=== PATIENT | female | born 1965 | race Caucasian/White ===

== ENCOUNTER 2025-04-22 14:17 | Outpatient (AMB) | payer OTHER, SELFPAY ==
--- NOTE | 2025-04-22 14:45 | MHC.OFFVIS ---
Intake Visit Reasons: Follow up Accompanied by: Daughter Allergies amitriptyline Allergy (Unknown, Verified 04/22/25 14:49) Unknown aspirin Allergy (Unknown, Verified 04/22/25 14:49) Unknown ibuprofen Allergy (Unknown, Verified 04/22/25 14:49) Unknown Medication List - Last Reconciled 04/22/25 by Manisha Stuart CNP sertraline 100 mg PO DAILY sumatriptan succinate 50 mg PO topiramate orally 1/2 tab in the morning and 1 tab at bedtime; trazodone 50 mg PO BEDTIME PRN HPI Comments Details: 59-year-old woman with anxiety, depression, IBS, and migraine.? She was doing okay. Migraines were better with increased dose of topiramate. They were not happening as often and she was not waking up with headaches anymore. Sumatriptan as needed helped, but occasionally she had to repeat dose. Sleep was okay. Mood was okay. [facility] Medical History (Updated 04/22/25 @ 14:47 by Manisha Stuart CNP) IBS (irritable bowel syndrome) Migraine Insomnia Depression with anxiety Chronic migraine without aura Review of Systems Const Denies chills, Denies daytime sleepiness, Reports difficulty sleeping, Denies fatigue, Denies fever(s), Denies frequent falls, Reports headache(s), Denies increased appetite, Denies poor appetite, Denies snoring, Denies weakness, Denies weight gain and Denies weight loss Eyes Denies loss of vision ENT Denies vertigo, Denies dizziness and Reports headache(s) Card Denies chest pain at rest, Denies chest pain with activity, Denies syncope, Denies leg edema and Denies palpitations Resp Denies snoring GI Denies constipation, Denies heartburn, Denies diarrhea and Denies nausea Denies urinary frequency, Denies urinary incontinence and Denies urinary urgency Musc Denies abnormal gait, Denies numbness and Denies tingling Skin/Breast Denies dry skin and Denies rash Neuro Denies abnormal gait, Denies vertigo, Denies dizziness, Denies syncope, Denies frequent falls, Reports headache(s), Denies lack of coordination, Denies loss of vision, Denies memory loss, Denies numbness, Denies restless legs, Denies seizure-like activity, Denies tingling, Denies paresthesias, Denies tremor(s) and Denies weakness Psych Denies anxiety, Reports depression, Denies auditory hallucinations, Denies memory loss, Denies visual hallucinations and Denies suicidal ideation Endo Denies fatigue and Denies palpitations Physical Exam Const Other: General Appearance:? normal, in no acute distress. Skin:? no rashes, no significant birthmarks. Heart:? S1, S2 normal, no murmurs. Lungs:? clear anteriorly and posteriorly. Extremities:? no edema. Psych:? alert, oriented, cognitive function intact, cooperative with exam. Neuro Other: Mental Status:?Normal attention, orientation, memory and affect.? Cranial Nerves:?Pupils are equal, round and reactive to light. External occular muscles are intact. Visual hancock are full. Face is symmetrical. Facial sensations are normal. Tongue is midline. Palate elevates symmetrically. Shoulder shrugging is normal. Hearing to bedside conversation is normal. Sensory Exam:?....? Coordination:?No ataxia,?no titubation.? Gait Exam: Within normal limits. Cerebellar Signs:?Tbpscn-be-csto is okay. Extrapyramidal System:?No tremor, rigidity with normal facial expressions.? Pronator Drift:?Not present.? Involuntary Movements:?No tremors seen.? Speech:?Normal.? Assessment & Plan Assessment & Plan (1) Migraine without aura: Code(s): G43.009 - Migraine without aura, not intractable, without status migrainosus Category: Medical Qualifiers: Status migrainosus presence: without status migrainosus Intractability: not intractable Qualified Code(s): G43.009 - Migraine without aura, not intractable, without status migrainosus Plan: Continue sertraline 100mg 1 tablet daily. Continue topiramate 100mg 1/2 tablet in the morning and 1 tablet at bedtime. Continue sumatriptan 50mg 1 tablet as needed for migraines. (2) Insomnia: Code(s): G47.00 - Insomnia, unspecified Category: Medical Qualifiers: Insomnia type: unspecified Qualified Code(s): G47.00 - Insomnia, unspecified Plan: Continue trazodone 50mg 1 tablet at bedtime as needed for sleep. Plan Meds tried: Propranalol, Topiramate, Depakote, metoclopromide, amitryptiline, metoprolol, cafergot, fiorecet. Medications: New sumatriptan succinate take 1 tab at onset of headache; if no relief may repeat 1 tab after at least 2 hrs; PO 10 tabs 5RF 30 days Changed From topiramate orally 1/2 tab in the morning and 1 tab at bedtime; To topiramate 100 mg orally 1/2 tab in the morning and 1 tab at bedtime; 135 tabs 1RF 90 days Discontinued sumatriptan succinate Discontinued Reason: Order 50 mg PO Coding Level of Care Code Est Pt Level 4 (94538) Diagnoses Migraine without aura and without status migrainosus, not intractable G43.009 Status migrainosus presence: without status migrainosus Intractability: not intractable Insomnia, unspecified type G47.00 Insomnia type: unspecified
--- OUTSIDE RECORDS SUMMARY | 2025-04-22 15:39 | XMS_ITS ---
Author Name [facility] Organization Unknown Care Team Organization Name Specialty Phone Email Start Date End Da te [facility] Kamryn Potts Primary [facility] 05/22/2023 024
--- OUTSIDE RECORDS SUMMARY | 2025-04-22 15:39 | XMS_ITS | Clinical Summary ---
Author Organization [address] [place] [address] Address [address] [place] [address] Phone Care Team Providers Care Material Damage Appraiser Name Role Phone Lynn Medrano MD Primary Care Provider [phone] Allergies Active Allergy Reactions Criticality Noted Date Comments Amitriptyline 07/07/2019 Tightness of throat, difficulty breathing Aspirin GI intolerance 04/06/2019 Ibuprofen Hives 04/06/2019 Medications NON FORMULARY Take by mouth. SUMAtriptan-On dansetron 50 & 4 MG Tablet Therapy Pack- Take by mouth. Active sertraline (ZOLOFT) 100 mg tablet Take 1 tablet (100 mg total) by mouth 1 (one) time each day. 4 Active dicyclomine (BENTYL) 10 mg capsule Take 1 Capsule by mouth 4 times daily as needed (for abdominal cramps). 4 Active polyethylene glycol (PEG) 17 gram/dose oral powder One capful (17g) once or twice daily as needed for constipation. 2 Active topiramate 100 mg capsule,extende d release 24hr Take 1 Tab by mouth at bedtime. From Neurologist- 0 Active traZODone (DESYREL) 50 mg tablet Take 50 mg by mouth at bedtime. Take half as needed Active atorvastatin (LIPITOR) 40 mg tablet TAKE 1 TABLET BY MOUTH DAILY 30 each 1 5 Active Active Problems Problem Noted Date Diagnosed Date Chronic Helicobacter pylori gastritis 10/01/2019 Internal hemorrhoids 10/01/2019 IBS (irritable bowel syndrome) 06/08/2019 Overview (07/02/2024): Both constipation and diarrhea Anxiety 04/03/2019 Depression 04/03/2019 GERD (gastroesophageal reflux disease) 9 Hyperlipidemia 04/03/2019 Migraine 04/03/2019 Overview (07/02/2024): See neurology Encounters Date Type Department Care Team Description 03/24/2025 10:00 AM EDT Ancillary Procedure [facility] - [address] [place] [address] Varicose veins of both lower extremities with pain 01/22/2025 Telephone Vascular Surgery - [place] [address] [place] [address] Elizabet Marquis MD from Last 3 Months Immunizations Name Administration Dates Next Due Influenza Quadravalent, MDCK , 0.5ml, preservative free (Flucelvax) 6mo and older 06/08/2019 MMR, measles mumps and rubel la Live (Priorix; M-M-R II) 12mo and older 12/20/2018 Moderna SARS-CoV-2 COVID-19, mRNA, LNP-S, preservative free 11/11/2020,10/14/2020 Tdap Tetanus diptheria acell ular pertussis (Boostrix; Adacel) 7yo and older 01/22/2018 Surgical History Surgery Date Site/Laterality Comments SECTION PROCEDURE: HISTORICAL HERNIA REPAIR PROCEDURE: HISTORICAL HERNIA REPAIR/UMB Medical History Medical History Date Comments Hyperlipidemia 04/03/2019 DX:Hyperlipidemi a Depression 04/03/2019 DX:Depression Anxiety 04/03/2019 DX:Anxiety GERD (gastroesophageal reflux disease) 04/03/2019 DX:GERD (gastroesophageal reflux disease) Migraine 04/03/2019 DX:Migraine Family History Medical History Relation Name Comments No Known Problems Brother COPD Father Leukemia Mother Breast cancer Other m cousin Relation Name Status Comments Brother Father Mother Other m cousin Alive Social History Tobacco Use Types Packs/Day Years Used Date Smoking Tobacco: Never Smokeless Tobacco: Never Alcohol Use Standard Drinks/Week Comments Not Currently 0 (1 standard drink = 0.6 oz pur e alcohol) Comments Unknown Sex and Gender Information Value Date Recorded Sex Assigned at Not on file Legal Sex Female 4:16 AM EST Gender Identity Not on file Sexual Orientation Not on file Obstetrics History Last Filed Vital Signs Vital Sign Reading Time Taken Comments Blood Pressure 110/70 08/05/2024 2:31 PM EST Pulse 72 08/05/2024 2:31 PM EST Temperature - - Respiratory Rate 16 08/05/2024 2:31 PM EST Oxygen Saturation - - Inhaled Oxygen Concentration - - Weight 75.3 kg (166 lb) 08/05/2024 2:31 PM EST Height 152.4 cm (5') 08/05/2024 2:31 PM EST Body Mass Index 32.42 08/05/2024 2:31 PM EST Plan of Treatment Upcoming Encounters Date Type Department Care Team (Late st Contact Info) Description 06/05/2025 12:50 PM EDT Appointment Radiology Department [address] [phone] 06/14/2025 3:30 PM EDT Office Visit Vascular Surgery - [place] [address] [place] [address] Lisa Harry PA [address] [place] [phone] 10/06/2025 12:00 PM EST Office Visit Internal Medicine - [address] [phone] Lynn Medrano MD [address] [place] [address] Health Maintenance Due Date Last Done Comments Pneumococcal Vaccine: 50+ Years (1 of 1 - PCV) 2013 Zoster Vaccines (1 of 2) 2013 HIV Screening 07/28/2022 Social Influencers of Health Screening 07/28/2022 Depression Screening 08/19/2024 COVID-19 Vaccine ( season) 2025 07/19/2022, 07/06/2021, 11/11/2020, Additional history exists Influenza Vaccine (#1) 2025 2, 05/23/2020, 06/08/2019 Breast Cancer Screening 05/30/2026 05/30/20 24, 05/30/2024, 05/07/2023, Additional history exists DTaP,Tdap,and Td Vaccines (2 - Td or Tdap) 01/23/2028 01/22/2018 Cervical Cancer Screening: HPV 12/02/2028 12/03/2023 Cholesterol Screening (Lipid Panel) 06/10/2029 06/10/2024, 06/10/2024 Colorectal Cancer Screening: Colonoscopy 09/17/2029 09/17/2019 RSV Immunization Adult Patients (1 - 1-dose 75+ series) 2038 MMR Vaccines Aged Out 12/20/2018 No longer eligi ble based on patient's age to complete this topic Hepatitis C Screening Completed 04/20/2022 HIB Vaccines Aged Out No longer eligi ble based on patient's age to complete this topic HPV Vaccines Aged Out No longer eligi ble based on patient's age to complete this topic Hepatitis A Vaccines Aged Out No long er eligible based on patient's age to complete this topic Hepatitis B Vaccines Aged Out No long er eligible based on patient's age to complete this topic IPV Vaccines Aged Out No longer eligi ble based on patient's age to complete this topic Meningococcal ACWY Vaccine Aged Out N o longer eligible based on patient's age to complete this topic Meningococcal B Vaccine Aged Out No l onger eligible based on patient's age to complete this topic RSV Immunization Patients Under 20 months Aged Out No longer eligible based on patient's age to complete this topic Varicella Vaccines Aged Out No longer eligible based on patient's age to complete this topic Procedures Procedure Name Priority Date/Time Associated Diagnosis Comments VAS US DUPLEX LOWER EXT VENOUS INSUFFICIENCY BILATERAL Routine 03/24/2025 10:33 AM EDT Varicose veins of both lower extremities with pain LIPID PANEL Routine 06/10/2024 SCREENING MAMMOGRAPHY BI 2-VIEW BREAST INC CAD Routine 05/30/2024 1:20 PM EDT Encounter for screening mammogram for malignant neoplasm of breast HM HPV Routine 12/03/2023 HEPATITIS C SCREENING Routine 04/20/2022 COLONOSCOPY Routine 09/17/2019 from Last 3 Months or Most Recently Relevant to Health Maintenance Results * Vascular US duplex lower extremity venous insufficiency bilateral (03/24/2025 10:33 AM EDT) Left GSK lottie 0.32 cm CV VAS LAB Left GSDC lottie 0.12 cm CV VAS LAB Left GSMT lottie 0.36 cm CV VAS LAB Left GSPC lottie 0.21 cm CV VAS LAB Left GSPT lottie 0.36 cm CV VAS LAB Left SFJ Diameter 0.53 cm CV VAS LAB Left SSMC lottie 0.12 cm CV VAS LAB Left SSPC lottie 0.14 cm CV VAS LAB Right GSK lottie 0.20 cm CV VAS LAB Right GSDC lottie 0.21 cm CV VAS LAB Right GSMT lottie 0.37 cm CV VAS LAB Right GSPC lottie 0.21 cm CV VAS LAB Right GSPT lottie 0.40 cm CV VAS LAB Right SFJ Diameter 0.52 cm CV VAS LAB Right SSMC lottie 0.17 cm CV VAS LAB Right SSPC lottie 0.16 cm CV VAS LAB Left GSMT reflux 2,120 ms CV VAS LAB Left GSPC reflux 4,522 ms CV VAS LAB Anatomical Region Laterality Modality Vascular, Abdomen Ultrasound Narrative 03/24/2025 2:29 PM EDT RIGHT. 1. No evidence of deep vein thrombosis. 2. The saphenofemoral junction, common femoral, femoral, and popliteal veins are competent. 3. No superficial venous thrombosis. 4. No venous reflux noted in the small saphenous vein. 5. No venous reflux noted in the greater saphenous vein. LEFT. 1. No evidence of deep vein thrombosis. 2. The saphenofemoral junction, common femoral, femoral, and popliteal veins are competent. 3. No superficial venous thrombosis. 4. No venous reflux noted in the saphenopopliteal junction or small saphenous vein. 5. 2.1 and 4.5 seconds of venous reflux noted in the mid thigh and proximal below-knee greater saphenous vein, respectively. 6. Venous reflux as described below and GSV branches and varicosities. Right Lower Venous No evidence of deep vein thrombosis in the common femoral, deep femoral, proximal femoral, mid femoral, distal femoral, popliteal, greater saphenous, small saphenous, posterior tibial and peroneal veins of the right leg. The vessels showed compressibility. Interrogation showed phasic and spontaneous Doppler signals. Right Venous Insufficiency Duplex The exam was performed with the patient in reverse Trendelenburg. Right saphenopopliteal junction was not identified. Left Lower Venous No evidence of deep vein thrombosis in the common femoral, deep femoral, proximal femoral, mid femoral, distal femoral, popliteal, greater saphenous, small saphenous, posterior tibial and peroneal veins of the left leg. The vessels showed compressibility. Interrogation showed phasic and spontaneous Doppler signals. Left Venous Insufficiency Duplex The exam was performed with the patient in reverse trendelenburg. Left saphenopopliteal junction was not identified. GSV branches/varicose veins refluxing at: Upper calf: 4.4 sec (0.22 cm), originating off from GSV upper calf. Email Marketing Coordinator Details A godinez scale, color and doppler analysis ultrasound was performed. During the study longitudinal and transverse views were obtained. Continuous wave doppler and pulsed wave doppler was performed. Overall the study quality was good. Allan Hale MD CV VASCULAR PROCEDURES Final Re sult * (ABNORMAL) Lipid panel (06/10/2024) LDL/HDL Ratio 3 0 - 4 Triglycerides 160(A) 0 - 150 mg/dL Cholesterol 175 0 - 200 mg/dL HDL 63 >=40 mg/dL LDL Cholesterol 80 0 - 100 mg/dL Blood Venous blood specimen / Unknown Historical Provider LAB BLOOD ORDERABLES Maylin l Result * SCREENING MAMMOGRAPHY BI 2-VIEW BREAST INC CAD (05/30/2024 1:20 PM EDT) Anatomical Region Laterality Modality Radiographic Tiesha ging 05/07/2023 4:52 PM EDT Narrative 05/30/2024 2:36 PM EDT This is a summary report. The complete report is available in the patient's medical record. If you cannot access the medical record, please contact the sending organization for a detailed fax or copy. Study: SCREENING MAMMOGRAPHY BI 2-VIEW BREAST INC CAD Technique: Bilateral full-field digital screening mammography is obtained and read in conjunction with computer aided detection. Tomosynthesis as well as 2D C-View imaging were obtained. Comparison: Comparison made to multiple priors, most recent May 07, 2023, and most remote July 29, 2019. Breast composition: There are scattered areas of fibroglandular density. Bilateral breasts: No significant masses, suspicious calcifications or other abnormalities are seen in either breast. IMPRESSION: Impression: Bilateral breasts: Negative, no specific mammographic evidence of malignancy. Normal interval follow-up is recommended in 12 months. BI-RADS: Category 1: Negative [address] [id number] [phone] Procedure Note Luis Evans MD - 06/16/2024 This is a summary report. The complete report is available in thepatient's medical record. If you cannot access the medical record, pleasecontact the sending organization for a detailed fax or copy. Study: SCREENING MAMMOGRAPHY BI 2-VIEW BREAST INC CAD Technique: Bilateral full-field digital screening mammography is obtainedand read in conjunction with computer aided detection. Tomosynthesis aswell as 2D C-View imaging were obtained. Comparison: Comparison made to multiple priors, most recent April, and most remote July 29, 2019. Breast composition: There are scattered areas of fibroglandular density. Bilateral breasts: No significant masses, suspicious calcifications orother abnormalities are seen in either breast. IMPRESSION: Impression: Bilateral breasts: Negative, no specific mammographic evidence ofmalignancy. Normal interval follow-up is recommended in 12 months. BI-RADS: Category 1: Negative [address] [id number] [id number] Kamryn JEFFREY IMG XR PROCEDURES Final Result * Cervical Cancer Screening: HPV (12/03/2023) Pathologist [facility] Cervical Cancer Screening: HPV negative, abstracted Historical Provider HEALTH MAINTENANCE Final Result * Hepatitis C Screening (04/20/2022) Hepatitis C Screening abstracted Historical Provider HEALTH MAINTENANCE Final Result * Colonoscopy (09/17/2019) Colonoscopy no interpretation , abstracted Anatomical Region Laterality Modality Other Historical Provider HEALTH MAINTENANCE Final Result from Last 3 Months or Most Recently Relevant to Health Maintenance Insurance [facility] [place] [address] Care Teams Material Damage Appraiser Relationship Specialty Start Date End Date Lynn Medrano MD [address], [place] PCP - General Internal Medicine 04/22/25
== END 2025-04-22 14:57 | disposition home or self-care (01) ==
LOC: HO.HSM 14:17
PROVIDERS: PCP Internal Medicine; Visit Provider Registered Nurse
DX: G43.009 Migraine without aura, not intractable, without status migrainosus (principal); G47.00 Insomnia, unspecified
CPT/HCPCS: 99214

== ENCOUNTER → 2025-04-22 14:17 | Outpatient (BNVA) | payer OTHER, SELFPAY | PROVIDERS: PCP Internal Medicine; Visit Provider Registered Nurse | DX: G43.009 Migraine without aura, not intractable, without status migrainosus (principal); G47.00 Insomnia, unspecified; Z79.899 Other long term (current) drug therapy | CPT/HCPCS: 99212 ==

== ENCOUNTER 2025-07-29 10:57 | Outpatient (AMB) | payer OTHER, SELFPAY ==
--- NOTE | 2025-07-29 10:49 | A.OFFPC_ITS ---
Vital Signs 07/29/25 11:03 Height 4 ft 11.84 in Weight 167 lb 8 oz BMI 32.9 BP 124/61 Blood Pressure Location Rt brachial Position Sitting Pulse 80 Pulse Source Pulse Oximeter Temp 98.2 F Temp Source Oral Pulse Oximetry (%) 96 Oxygen Delivery Method Room Air Intake Visit Reasons: CLIENT ACCOUNT ASSISTANT-High Cholesterol Intake Note: wants rx for compression stockings Bankruptcy Processor Name: daughterDr. speaks malian Accompanied by: Self / Same As Patient Allergies amitriptyline Allergy (Unknown, Verified 07/29/25 10:49) Unknown aspirin Allergy (Unknown, Verified 07/29/25 10:49) Unknown ibuprofen Allergy (Unknown, Verified 07/29/25 10:49) Unknown Medication List - Last Reconciled 07/30/25 by Gumaro Bland MD atorvastatin 40 mg PO DAILY dicyclomine 20 mg PO ONCE PRN sertraline 100 mg PO DAILY sumatriptan succinate take 1 tab at onset of headache; if no relief may repeat 1 tab after at least 2 hrs; PO 30 days topiramate 100 mg orally 1/2 tab in the morning and 1 tab at bedtime; 90 days trazodone 50 mg PO BEDTIME PRN Tobacco use date assessed: 07/29/25 Dental Screening Dental Screen Date: 07/29/25 Did you have a dental visit in the last 12 months?: Yes Was dental information given to patient?: Patient has dentist HPI HPI Comments History of Present Illness Details History of Present Illness The patient is a 60 year old female presenting for a general health evaluation and management of multiple chronic conditions. Migraine: The patient has a history of migraines, which began in [facility]. The headaches were severe, sometimes requiring emergency room visits for intravenous medication. She was evaluated by a neurologist and has tried various medications, including valproic acid and topiramate, with mixed results. Her neurologist associated the headaches with stress, particularly around paying bills. She currently takes sumatriptan for acute migraines and topiramate for prevention. Depression and Anxiety: The patient reports a history of depression and anxiety, which she relates to a difficult separation from her ex- while she had three children and was not working. Her neurologist prescribed sertraline for depression. She denies receiving any counseling or therapy. Insomnia: The patient takes trazodone for difficulty sleeping. The sleep problems are associated with her history of headaches. Heel Pain (Right): The patient reports significant pain in her right heel. She previously saw a ignition mechanic who administered an injection, which provided relief for many months, but the pain has now returned. An X-ray performed about five years ago reportedl y showed a small bone spur. Knee Pain: The patient reports she has significant knee pain with occasional swelling, but does not specify laterality. Varicose Veins: The patient has significant varicose veins and notes one particularly painful varix. She was scheduled for a procedure involving an injection with a vascular specialist, but this was canceled due to a change in her primary care provider and insurance. Health Maintenance: The patient is 60 years old and had her last menstrual period at age 48. She reports having Pap smears in [facility] but not since moving to the , as a previous provider told her it was unnecessary due to a lack of sexual activity; she had a vaginal ultrasound about 4 years ago. She is due for a mammogram, which she missed this year because she could not get a ride to the appointment. Her last colonoscopy was over four years ago and was normal. Abdominal Symptoms: The patient takes dicyclomine for abdominal bloating related to her colon, which is triggered by certain foods. She also reports occasional constipation. Surgical History: - sections (x3) Medications: - Atorvastatin for high cholesterol - Dicyclomine for abdominal bloating - Sertraline for depression - Sumatriptan for migraine - Topiramate for migraine prevention - Trazodone for sleep Social History: - Substance Use: Denies smoking or illic it drug use. - Past Marital Status: Reports a difficu lt separation from her ex-. - Past Employment: Reports she did not w ork during her marriage. Diagnostic Results: - Colonoscopy: Normal, performed over fo ur years ago. - Vaginal Ultrasound: Performed approxim ately four years ago, results not specified. - Foot X-ray: Performed approximately fi ve years ago, reportedly showed a small bone spur. Past Medical History - Migraine - Depression - Anxiety - Insomnia - Hyperlipidemia - History of ectopic - Umbilical hernia - Allergies: Aspirin, amitriptyline, ibu profen. Health Maintenance - The patient is due for a Pap smear, philip simoneg not had one since moving to the . - The patient is due for a screening [facility] mogram. - Her last colonoscopy was over four yea rs ago and was normal. [facility] Medical History (Updated 07/30/25 @ 22:15 by Gumaro Bland MD) Onychomycosis Hyperlipidemia Abdominal bloating Knee pain Anxiety and depression Varicose veins of bilateral lower extremities with pain Heel pain IBS (irritable bowel syndrome) Migraine Insomnia Depression with anxiety Chronic migraine without aura Family History Mother No problems noted. Father No problems noted. Social History Housing: House Patient Tobacco Use Status: Never used Tobacco e-Cigarette/Vaping Use: Never Used service: No Current occupational status: retired Cognitive needs: No Hearing needs: No Vision needs: Yes (glasses) Questionnaire PHQ-9 Over the last 2 weeks, how often have you been bothered by any of the following problems? 1. Little interest or pleasure in doing things: several days 2. Feeling down, depressed, or hopeless: several days 3. Trouble falling or staying asleep, or sleeping too much: more than half the days 4. Feeling tired or having little energy: more than half the days 5. Poor appetite or overeating: several days 6. Feeling bad about yourself - or that you are a failure or have let yourself or your family down: not at all 7. Trouble concentrating on things, such as reading the newspaper or watching television: not at all 8. Moving or speaking so slowly that other people could have noticed. Or the opposite - being so fidgety or restless that you have been moving around a lot more than usual: not at all 9. Thoughts that you would be better off or of hurting yourself in some way : not at all Total score: 7 Depression Screening Interpretation: Negative Depression Screening Done: Yes Source: Developed by Drs. Malachi Barkley, Samanta Hernandez, Олег Aldana and colleagues, with an educational immanuel from [employer]. Thrive Questionnaire Date Thrive assessed: 07/29/25 I am a: Patient What is your living situation today?: I have a steady place to live Within the past 12 months, did the food you bought not last and you didn't have the money to get more?: Never true Within the past 12 months, did you worry whether your food would run out before you got money to buy more?: Never true Do you have trouble paying for medicines?: No Do you have trouble getting transportation to medical appointments?: No Do you have trouble paying your heating and electricity bill?: No Do you have trouble taking care of your child, family member or friend?: No Do you have trouble with day-to-day activities such as bathing, preparing meals, shopping, managing finances, etc.?: No Are you currently unemployed and looking for a job?: No Are you interested in more education?: No Please select the resources that you would like help with: None THRIVE Score: 0 AUDIT C Alcohol Use Questionnaire (AUDIT-C) 1. How often do you have a drink containing alcohol?: Never Total Score: 0 DINESH-7 AMB Questionnaire DINESH-7 Date DINESH - 7 assessed: 07/29/25 Feeling nervous, anxious, or on edge: 1 = Several days Not being able to stop or control worryin = Several days Worrying too much about different things: 1 = Several days Trouble relaxin = Not at all Being so restless that it is hard to sit still: 0 = Not at all Becoming easily annoyed or irritable: 1 = Several days Feeling afraid as if something awful might happen: 0 = Not at all Total DINESH-7 score (0-4 normal; 5-9 mild; 10-14 moderate; 15-21 severe): 4 Source: Developed by Drs. Malachi Barkley, Samanta Hernandez, Олег Aldana and colleagues, with an educational immanuel from [employer]. Review of Systems Narrative Review of Systems - Neurological: Reports history of severe migraines and headaches. - Psychiatric: Reports history of depression, anxiety, and stress. - Gastrointestinal: Reports abdominal bloating triggered by certain foods, and occasional constipation. Denies other Gl symptoms. - Musculoskeletal: Reports significant pain in the right heel and knee pain with occasional swelling. - Constitutional: Reports difficulty sleeping. - Allergic/Immunologic: Reports allergies to aspirin, amitriptyline, and ibuprofen. - Cardiovascular: Reports painful varicose veins. - Genitourinary: Reports last menstrual period was at age 48. 10-point ROS reviewed and negative except as noted in HPI Physical exam (Primary Care) Vital Signs: Last Vital Signs Temp 98.2 F 07/29/25 11:03 Pulse 80 07/29/25 11:03 BP 124/61 07/29/25 11:03 Pulse Ox 96 07/29/25 11:03 Oxygen Delivery Method Room Air 07/29/25 11:03 BMI result Body Mass Index 32.9 Tobacco/Smoking Status: Tobacco use Status Tobacco use date assessed 07/29/25 07/29/25 10:51 Patient Tobacco Use Status Never used Tobacco 07/29/25 10:51 e-Cigarette/Vaping Use Never Used 07/29/25 10:51 PHQ-9: PHQ-9 Score PHQ-9: Total score 7 07/29/25 22:08 Depression Screening Interpretation: Negative Thrive Assessment: Date of Thrive Assessment Date Thrive assessed 07/29/25 07/29/25 11:11 Narrative Physical Exam General: Well-appearing, in no acute distress. Vital signs: Within normal limits. HEENT: Normocephalic, atraumatic. PERRLA, EOMI. Conjunctiva clear, sclera anicteric. Oropharynx clear, mucous membranes moist. TMs intact bilaterally. Neck: Supple, no lymphadenopathy, no thyromegaly, no JVD or carotid bruits. Cardiovascular: RRR, normal S1/S2, no murmurs, rubs, or gallops. Peripheral pulses 2+ and symmetric. No edema. Respiratory: Lungs clear to auscultation bilaterally, no wheezes, rales, or rhonchi. Normal effort. Abdomen: Soft, non-tender, non-distended. Normoactive bowel sounds. No hepatosplenomegaly, no masses. MSK: Full range of motion, no joint swelling or deformity. Normal gait. Reports knee pain and swelling, particularly in the right knee, and heel pain on the right side. Skin: Warm, dry, intact. No rashes, lesions, or pallor. Reports significant varicose veins with associated pain. Neuro: Alert and oriented x3. Cranial nerves II-XII intact. Strength 5/5 throughout. Sensation intact. Reflexes 2+ symmetric. Normal coordination and gait. Psych: Appropriate mood and affect. Normal judgment and insight. Reports history of depression and anxiety, currently managed by a neurologist. Coding Level of Care Code New Pt Level 4 (24758) Add On Problem Visit Only Diagnoses Migraine without aura and without status migrainosus, not intractable G43.009 Status migrainosus presence: without status migrainosus Intractability: not intractable Heel pain M79.673 Varicose veins of bilateral lower extremities with pain I83.813 Insomnia, unspecified type G47.00 Insomnia type: unspecified Anxiety and depression F41.9; F32.A Knee pain M25.569 Abdominal bloating R14.0 Hyperlipidemia E78.5 Onychomycosis B35.1 Assessment & Plan Assessment & Plan (1) Migraine without aura: Code(s): G43.009 - Migraine without aura, not intractable, without status migrainosus Category: Medical Qualifiers: Status migrainosus presence: without status migrainosus Intractability: not intractable Qualified Code(s): G43.009 - Migraine without aura, not intractable, without status migrainosus (2) Heel pain: Code(s): M79.673 - Pain in unspecified foot Category: Medical (3) Varicose veins of bilateral lower extremities with pain: Code(s): I83.813 - Varicose veins of bilateral lower extremities with pain Category: Medical (4) Insomnia: Code(s): G47.00 - Insomnia, unspecified Category: Medical Qualifiers: Insomnia type: unspecified Qualified Code(s): G47.00 - Insomnia, unspecified (5) Anxiety and depression: Code(s): F41.9 - Anxiety disorder, unspecified; F32.A - Depression, unspecified Category: Medical (6) Knee pain: Code(s): M25.569 - Pain in unspecified knee Category: Medical (7) Abdominal bloating: Code(s): R14.0 - Abdominal distension (gaseous) Category: Medical (8) Hyperlipidemia: Code(s): E78.5 - Hyperlipidemia, unspecified Category: Medical (9) Onychomycosis: Code(s): B35.1 - Tinea unguium Category: Medical Plan Consent Patient was informed and verbally consented to the use of an ambient scribe for clinic note documentation during this visit. Plan 1. Preventative Care - Will order comprehensive labs including CBC, CMP, magnesium, thyroid panel, vitamin B12, vitamin D, syphilis screen, hepatitis B and C panels, HIV, hemoglobin A1c, and a lipid panel to get a comprehensive overview of her health. - The patient can have her blood drawn today and does not need to fast. - Placed a referral for a screening mammogram at [facility]. - Advised the patient to schedule a separate appointment for a Pap smear. - Patient will follow up in two weeks to discuss all results. 2. Heel Pain (Right) - Will place a referral to Podiatry for further evaluation and management, which may include another injection. - Will order an X-ray of the right foot to re-evaluate for bony abnormality. 3. Onychomycosis - The suspected fungal infection can be addressed by Podiatry. - Will wait for liver function tests from the lab work before prescribing any oral antifungal medication. - In the meantime, will prescribe a topical treatment. 4. Varicose Veins - Will place a referral to a vascular specialist for evaluation and management of her painful varicose veins. Discussion Notes I discussed the plan with the patient, which includes comprehensive blood work to get a full picture of her current health status, including a CBC, CMP, thyroid panel, B12, vitamin D, lipid panel, and various infectious disease screenings. I explained that these labs can be drawn today without fasting. I also explained that I am placing referrals for a mammogram, a podiatry consult for her heel pain, and a vascular consult for her varicose veins. I will also order an X-ray of her painful right foot. I informed her that our referral center will contact her to schedule these appointments. I corrected her misinformation regarding Pap smears, explaining that they are still recommended even without sexual activity, and advised her to schedule a separate appointment for this. For the suspected toenail fungus, I will prescribe a topical treatment and wait for lab results to check liver function before considering other options. We will have a follow-up visit in two weeks to review all the results and create a comprehensive going-forward plan. The patient understood the plan and agreed. Patient Instructions - Go to the lab today to have your blood drawn. You do not need to be fasting for this test. - A referral center will call you to schedule several appointments: a mammogram, an appointment with a foot doctor (ignition mechanic), and an appointment with a vein doctor (vascular specialist). - You will also need to get an X-ray of your right foot. - Call our office to schedule a separate appointment for a Pap smear. - A prescription for a cream will be sent for the fungus on your toenail. Apply it to the affected nail as directed. - Make a follow-up appointment to see me in two weeks to go over all your results. Medical Decision Making The patient is a 60-year-old female with a complex medical history who presents for a new patient evaluation. Given her multiple chronic issues and the fact that she is new to my practice, my primary goal for this visit is to establish a comprehensive baseline of her health status. To this end, I have ordered a broad panel of labs including a CBC, CMP, lipids, HbA1c, thyroid function, vitamin B12/D, and infectious disease screening to identify any underlying metabolic or hematologic abnormalities that may be contributing to her symptoms. Her right heel pain, previously responsive to a steroid injection and with a remote history of a bone spur, warrants re-evaluation. Therefore, I am ordering a new X-ray of the foot and referring her back to podiatry for further management. The pedal onychomycosis will be addressed initially with a topical antifungal pending LFT results before considering systemic therapy. She is overdue for several bridges preventative screenings. I have placed a referral for a screening mammogram and advised her on the importance of scheduling a Pap smear, correcting her previous misunderstanding that it was unnecessary. Her painful varicose veins require specialist evaluation, prompting a referral to vascular surgery. A follow-up is scheduled in two weeks to review all diagnostic findings and construct a coordinated, long-term management plan. Total Time Statement 30 min Total time spent caring for the patient today includes pre-visit chart review, documentation, review of laboratory and diagnostic imaging results, medication reconciliation, medically necessary evaluation, counseling on diagnoses, care coordination, ordering appropriate tests and medications, review of tests performed by other providers, reporting test results to the patient, and communication with other healthcare providers. Orders: Orders Complete Blood Count Auto Diff 07/29/25 Z13.9 - Encounter for screening, unspecified Syphilis Screen 07/29/25 Z13.9 - Encounter for screening, unspecified Comprehensive Met. Panel 07/29/25 Z13.9 - Encounter for screening, unspecified HIV Ab/Ag 07/29/25 Z13.9 - Encounter for screening, unspecified Lipid Panel 07/29/25 Z13.9 - Encounter for screening, unspecified Vitamin B12 and Folate 07/29/25 Z13.9 - Encounter for screening, unspecified Magnesium 07/29/25 Z13.9 - Encounter for screening, unspecified Hepatitis B Surface Antigen 07/29/25 Z13.9 - Encounter for screening, unspecified Hepatitis C Antibody 07/29/25 Z13.9 - Encounter for screening, unspecified TSH reflex Free T4 07/29/25 Z13.9 - Encounter for screening, unspecified UA CC w/rflx Micro + Cult 07/29/25 Z13.9 - Encounter for screening, unspecified Hemoglobin A1c 07/29/25 Z13.9 - Encounter for screening, unspecified Hepatitis B Surface Antibody 07/29/25 Z13.9 - Encounter for screening, unspecified Vitamin D 25-OH (D2 and D3) 07/29/25 Z13.9 - Encounter for screening, uns pecified Influenza [id number] Immunization 07/29/25 Z23 - Encounter for immunization MM screening mammo BI 07/29/25 Z12.31 - Encounter for screening mammogram for malignant neoplasm of breast XR foot RT min 3V 07/29/25 M79.673 - Pain in unspecified foot Referrals Podiatry Referral M79.673 - Pain in unspecified foot Vascular Surgery Referral I83.813 - Varicose veins of bilateral lower extremities with pain Medications: New ciclopirox 8% 1 appl topical BEDTIME 6.6 mL 0RF 4 weeks B35.1 - Tinea unguium Fluarix [id number] (PF) (flu vac ts (6mos up)-PF) 0.5 mL IM ONCE 0.5 mL 0RF NS Z23 - Encounter for immunization
[2025-07-29 11:03] VITALS: BP 124/61; PULSE 80; TEMP 36.8; O2SAT 96; BMI 32.9
== END 2025-07-29 11:41 | disposition home or self-care (01) ==
LOC: HO.HMCFMS 10:58
PROVIDERS: PCP Internal Medicine; Visit Provider Student in an Organized Health Care Education/Training Program
DX: G43.009 Migraine without aura, not intractable, without status migrainosus (principal); M79.673 Pain in unspecified foot; I83.813 Varicose veins of bilateral lower extremities with pain; G47.00 Insomnia, unspecified; F41.9 Anxiety disorder, unspecified; F32.A Depression, unspecified; M25.569 Pain in unspecified knee; R14.0 Abdominal distension (gaseous); E78.5 Hyperlipidemia, unspecified; B35.1 Tinea unguium

== ENCOUNTER 2025-07-29 10:57 | Outpatient (REF) | payer OTHER, SELFPAY ==
[2025-07-29 13:42] LABS: MANUAL DIFF FLAG NO
[2025-07-29 13:46] LABS: Hematocrit 41.3 % (37.0-47.0); Hemoglobin 13.3 g/dl (12.0-16.0); Imm Gran Abs Auto 0.04 X10*3/uL (0.00-0.03); Imm Gran Pct Auto 0.4 % (0.0-0.4); Lymphocytes Absolute Auto 2.7 X10*3/uL (1.2-4.9); Mean Corpuscular HGB Conc 32.2 g/dl (31.0-35.0); Mean Corpuscular Hemoglobin 28.5 pg (27.0-33.0); Mean Corpuscular Volume 88.4 fL (80.0-98.0); NRBC Abs Auto 0.000 X10*3/uL (0.0-0.012); NRBC Pct Auto 0.0 /100WBC (0.0-0.2); Platelet Count 291 X10*3/uL (160-400); Red Blood Count 4.67 X10*6/uL (4.20-5.50); White Blood Count 10.1 X10*3/uL (4.8-10.8)
[2025-07-29 14:05] LABS: Appearance Urine Cloudy; Glucose Urine UA Negative (Negative); PH 6.5 (5.0-9.0); Specific Gravity - Urine <= 1.005 (1.005-1.025); UMIC TRIGGER UACC YES
[2025-07-29 14:31] LABS: Alanine Aminotransferase 22 U/L (0-31); Albumin Level 4.6 g/dL (3.5-5.0); Alkaline Phosphatase 102 U/L (39-117); Anion Gap 9 (12-20); Aspartate Amino Transferase 24 U/L (5-31); Blood Urea Nitrogen 17 mg/dL (9-16); Calcium 9.4 mg/dL (8.4-10.2); Carbon Dioxide 26 mmol/L (22-29); Chloride 109 mmol/L (96-108); Cholesterol 174 mg/dL (<200); Estimated Glomerular Filt Rate > 60; HDL Cholesterol 48 mg/dL (>40); Magnesium 2.2 mg/dL (1.6-2.6); Potassium 3.4 mmol/L (3.3-5.1); Sodium 141 mmol/L (135-145); Total Protein 7.4 g/dL (6.5-8.0); Triglycerides 121 mg/dL (<150)
[2025-07-29 14:51] LABS: Folate 8.5 ng/mL (> or = 4.0); Vitamin B12 571 pg/mL (200-900)
[2025-07-30 07:54] LABS: HBS Num1 0.23 mIU/mL (0-7.99); HBsAGNum1 0.45 S/CO (0.00-0.99); HIV Num 1 0.06 S/CO (0.00-0.99); Hepatitis B Surface Antigen Negative (Negative); ~HepC Num1 0.10 S/CO (0.00-0.79); ~Hepatitis B Surface Antibody NONREACTIVE (Nonreactive); ~Hepatitis C Antibody Nonreactive (Nonreactive)
[2025-07-30 08:10] LABS: Syphilis Screen Nonreactive (Nonreactive)
[2025-08-03 16:28] LABS: Vitamin D 25-OH, D2 <4 ng/mL; Vitamin D 25-OH, D3 55 ng/mL; Vitamin D 25-OH, Total 55 ng/mL (30-100)
== END 2025-07-29 10:58 | disposition home or self-care (01) ==
LOC: HO.HKASLDS 10:57
PROVIDERS: PCP Internal Medicine; Visit Provider Student in an Organized Health Care Education/Training Program
DX: Z13.9 Encounter for screening, unspecified (principal); G43.009 Migraine without aura, not intractable, without status migrainosus; M79.673 Pain in unspecified foot; I83.813 Varicose veins of bilateral lower extremities with pain; G47.00 Insomnia, unspecified; F41.9 Anxiety disorder, unspecified; F32.A Depression, unspecified; M25.569 Pain in unspecified knee; R14.0 Abdominal distension (gaseous); E78.5 Hyperlipidemia, unspecified; B35.1 Tinea unguium
CPT/HCPCS: 36415; 80053; 80061; 81001; 81003; 82306; 82607; 82746; 83036; 83735; 84443; 85025; 86706; 86780; 86803; 87340; 87389